=== PATIENT | male | born 1955 | race Caucasian/White ===

== ENCOUNTER 2018-02-27 05:38 | Day surgery (SDC) | payer OTHER ==
[~2018-02-27] VITALS: Ht 172 cm; Wt 74.8 kg
[~2018-02-27 05:38] MED LIST: ABILIFY 5 MG TAB5 M1 PO; BENZTROPINE MESY2 MG PO; CLONAZEPAM 1 MG1 M1 PO; DILANTIN100 MG PO; ENOXAPARIN40 MG/0.1 SUBQ; FLOMAX0.4 MG PO; HALOPERIDOL 5 MG5 MG PO; KEPPRA750 MG PO; LIPITOR 20 MG T20 M1 PO; LITHIUM CARBON300 M6 PO; MEMANTINE HCL10 MG PO; PREVACID30 M2 PO; TRANSDERM-SCOP1 EACH TRANSDERM; TUSSIN100 MG/5 M PO; VIMPAT200 MG PO; XALATAN2.5 ML OPHTHALMIC; ZONEGRAN100 MG PO
[2018-02-27 11:04] LABS: HEMATOCRIT 35.8 % (42.0-52.0); HEMOGLOBIN 12.1 gm/dL (14.0-18.0)
[2018-02-27 13:21] VITALS: BP 127/74
== END 2018-02-27 14:55 ==
LOC: OR 05:38 → TBA 05:38 → OR 09:52
PROVIDERS: Surgery
DX: K94.23 Gastrostomy malfunction (principal); K21.9 Gastro-esophageal reflux disease without esophagitis; F31.9 Bipolar disorder, unspecified; F20.9 Schizophrenia, unspecified; F41.9 Anxiety disorder, unspecified; F03.90 Unspecified dementia, unspecified severity, without behavioral disturbance, psychotic disturbance, mood disturbance, and anxiety; D64.89 Other specified anemias; Z88.0 Allergy status to penicillin; Z87.820 Personal history of traumatic brain injury; Z98.890 Other specified postprocedural states; Z88.8 Allergy status to other drugs, medicaments and biological substances; Z79.899 Other long term (current) drug therapy
CPT/HCPCS: 50010; 50101; 50517; 62110; 62900; 70005